=== PATIENT | female | born 1965 | race Caucasian/White ===

== ENCOUNTER → 2019-12-24 08:07 | Outpatient (CLI) | payer OTHER, SELFPAY ==
--- NOTE | ~2019-12-24 | MR_ITS ---
EXAMINATION: MR cervical spine wo con DATE: 12/24/2019 08:55 INDICATION: Right arm and shoulder pain. TECHNIQUE: Magnetic resonance imaging (MRI) of the cervical spine was performed without intravenous c ontrast. Sequences included sagittal T2-weighted FSE, sagittal STIR FSE, sagittal T1-weighted FSE, ax ial MERGE, and axial T2-weighted FSE. COMPARISON: None FINDINGS: There is 3 degrees dextrocurvature of cervical spine. There is 2 mm retrolisthesis of C4 on C5 and C5 on C6. Vertebral body heights are normal. There is severely decreased disc height at C4-C5 and C5-C6 and mildly decreased disc height at C6-C7. The spinal cord signal intensity is normal. The following disc levels are specifically discussed: C2-C3: The disc does not extend beyond the endplate margin. There is no uncovertebral joint osteoarth ritis. There is mild bilateral facet joint osteoarthritis. There is no neural foraminal stenosis. The re is no central canal stenosis. C3-C4: There is a right central extrusion. There is mild left uncovertebral joint osteoarthritis. The re is mild bilateral facet joint osteoarthritis. There is no neural foraminal stenosis. There is mild central canal stenosis. C4-C5: The disc is bulging. There is moderate and severe left uncovertebral joint osteoarthritis. The re is mild bilateral facet joint osteoarthritis. There is mild right and moderate left neural foramin al stenosis. There is mild central canal stenosis. C5-C6: The disc is bulging. There is severe bilateral uncovertebral joint osteoarthritis. There is mi ld bilateral facet joint osteoarthritis. There is mild bilateral neural foraminal stenosis. There is mild central canal stenosis with ventral indentation of spinal cord. C6-C7: There is a right central protrusion. There is mild bilateral uncovertebral joint osteoarthriti s. There is moderate bilateral facet joint osteoarthritis. There is mild bilateral neural foraminal s tenosis. There is mild central canal stenosis. C7-T1: The disc does not extend beyond the endplate margin. There is no uncovertebral joint osteoarth ritis. There is mild bilateral facet joint osteoarthritis. There is no neural foraminal stenosis. The re is no central canal stenosis. IMPRESSION: 1. Severe cervical spondylosis. Reviewed, dictated and finalized at location A. [employer]KER APPRENTICE
--- NOTE | ~2019-12-24 | MR_ITS ---
EXAMINATION: MR shoulder RT wo con DATE: 12/24/2019 09:47 INDICATION: Right rotator cuff tear right shoulder and arm pain and limited range of motion. TECHNIQUE: Magnetic resonance imaging (MRI) of the right shoulder was performed without intravenous c ontrast. Sequences included axial PD-weighted FS FSE, coronal oblique PD-weighted FS FSE, coronal obl ique T2-weighted FS FSE, sagittal PD-weighted FS FSE, and sagittal T1-weighted SE. COMPARISON: 06/18/2017 FINDINGS: Coracoacromial arch: The acromion undersurface is curved in morphology (type II). Acromion however appears thinner than on the prior study and the lateral portion of the coracoclavicular ligament appears torn most likely re lated to chronic remodeling resulting from the rotator cuff tear and cephalad subluxation of the caroline ral head. Differential would include interval acromioplasty although no foci of susceptibility artifa ct are seen to suggest interval surgery. Minimal acromioclavicular osteoarthritis. Rotator cuff: Thickness tear of the entire supraspinatus tendon and all but the posterior most portion of the infra spinatus tendon. The frayed supraspinatus tear margin is retracted 4 cm medially to the level of the rim of the glenoid. Moderate subscapularis tendinopathy without discrete tear. The teres minor tendon is normal. There is retraction of the supraspinatus muscle belly along with mild fatty atrophy. Retr action and moderate fatty atrophy of the infraspinatus muscle belly. Biceps tendon, glenoid labrum and glenohumeral cartilage: Mild tendinopathy without discrete tear at the junction of the intra and extra articular portion of t he long head biceps tendon. Mild degenerative fraying along the margins of the superior to posterior superior glenoid labrum. More subtle intermediate signal intensity at the site of the previous noted tear along the inferior margin of the biceps labral complex. Mild glenohumeral osteoarthritis with pa rtial thickness cartilage loss along the superior glenoid and along the posterior superior aspect of the humeral head. Small marginal osteophyte along the inferior humeral head. Fluid: Large glenohumeral joint effusion with mild to moderate synovitis at the axillary and posterior reces s of the joint space. This is contiguous with fluid within the subacromial/subdeltoid bursa where the re is additional mild synovitis. No loose osteochondral bodies. Bones: Superior subluxation of the humeral head with respect to the glenoid resulting from the rotator cuff tear. No fracture or pathologic marrow replacing process. There is mild degenerative cystic change al mich the lesser tuberosity likely related to subscapularis tendon disease. IMPRESSION: 1. Full-thickness tear of the supraspinatus and majority of the infraspinatus tendons which is likely chronic given the fatty atrophy of the muscle bellies and remodeling of the undersurface of the acro mion. 2. Mild glenohumeral osteoarthritis with degenerative tearing at the superior glenoid labrum. Line 3. Moderate subscapularis tendinopathy without discrete tear. Reviewed, dictated and finalized at location A. [employer] SPECIALIST IMPRESSION: 1. Full-thickness tear of the supraspinatus and majority of the infraspinatus t endons which is likely chronic given the fatty atrophy of the muscle bellies an d remodeling of the undersurface of the acromion. 2. Mild glenohumeral osteoarthritis with degenerative tearing at the superior g lenoid labrum. Line 3. Moderate subscapularis tendinopathy without discrete tear.
--- NOTE | ~2019-12-24 | MR_ITS ---
EXAMINATION: MR lumbar spine wo con DATE: 12/24/2019 09:25 INDICATION: Lumbar radiculopathy. Low back pain. Left leg pain. TECHNIQUE: Magnetic resonance imaging (MRI) of the lumbar spine was performed without intravenous con trast. Sequences included sagittal T2-weighted FSE, sagittal T2-weighted FS FSE, sagittal T1-weighted FSE, and axial T2-weighted FSE. COMPARISON: Lumbar spine MRI 08/31/2013 FINDINGS: There is 3 degrees levocurvature of lumbar spine. There is 3 mm anterolisthesis of L4 on L5 and 4 mm anterolisthesis of L5 on S1. Vertebral body heights are normal. There is mildly decreased d isc height at L1-L2, moderately decreased disc height at L2-L3, severely decreased disc height at L3- L4 and L4-L5, and moderately decreased disc height at L5-S1. At T11-T12, there is a central extrusion with mild central canal stenosis. The distal spinal cord signal intensity is normal. The conus medul patience is at T12-L1. The following disc levels are specifically discussed: L1-L2: The disc is bulging. There is moderate right and mild left facet joint osteoarthritis. There i s mild bilateral neural foraminal stenosis. There is mild central canal stenosis. L2-L3: The disc is bulging and has an annular fissure. There is moderate bilateral facet joint osteoa rthritis. There is mild bilateral neural foraminal stenosis. There is mild central canal stenosis. L3-L4: The disc is bulging. There is mild bilateral facet joint osteoarthritis. There is mild bilater al neural foraminal stenosis. There is mild central canal stenosis. L4-L5: The disc is bulging. There is mild right and severe left facet joint osteoarthritis. There is mild bilateral neural foraminal stenosis. There is mild central canal stenosis. L5-S1: The disc is bulging. There is severe bilateral facet joint osteoarthritis. There is mild bilat eral neural foraminal stenosis. There is no central canal stenosis. IMPRESSION: 1. Severe lumbar spondylosis, worsened from 08/31/2013. Reviewed, dictated and finalized at location A. 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
== END ==
PROVIDERS: Visit Provider Anesthesiology
DX: M19.011 Primary osteoarthritis, right shoulder (principal); S43.491A Other sprain of right shoulder joint, initial encounter; X58.XXXA Exposure to other specified factors, initial encounter; M47.22 Other spondylosis with radiculopathy, cervical region; M47.26 Other spondylosis with radiculopathy, lumbar region
CPT/HCPCS: 72141; 72148; 73221